=== PATIENT | male | born 1960 | race Caucasian/White ===

== ENCOUNTER 2025-05-20 05:51 | Day surgery (SDC) | payer BC, SELFPAY ==
[2025-05-20 06:07] VITALS: BMI 24.7
[2025-05-20 06:08] VITALS: BP 150/85
[2025-05-20] MEDS: TYLENOL 1000 MG PO (06:15)
[2025-05-20] MEDS: NORMOSOL-R/PLASMALYTE-A 1000 IV (06:25)
--- NOTE | 2025-05-20 06:39 | HP.FOC2 ---
Focused History & Physical
Chief Complaint
HPI:
Chief Complaint: Umbilical hernia
HPI / Indication for Planned Procedure: Patient is a 64-year-old male previously known to myself status post robotic bilateral inguinal herniorrhaphy and primary repair of an umbilical hernia in 2021. He is taking noted a visible swelling and
change in the previous appearance of his umbilicus. Physical examination confirmed the presence of a reducible recurrent umbilical hernia. He presents today for scheduled operative correction.
Relevant Past Medical History: Other (Hyperlipidemia)
Relevant Social History: Negative
Relevant Family History: Negative
Relevant Past Surgical History: Positive for (Bilateral inguinal herniorrhaphy, left ankle fracture repair, left biceps repair)
Review of Systems
Review of Pertinent Systems: All Systems Negative
Medication
See Medication form for detailed medications: Yes
Medication List (including Herbals & OTC):
No Meds [No Current Medications] 05/17/25
Medications Reviewed: Yes
Allergies and Reactions
Patient has Allergies: No
Noted Allergies and Reactions:
Allergy/AdvReac Type Severity Reaction Status Date / Time
No Known Allergies Allergy Verified 05/20/25 06:06
Pertinent Physical Exam
All Other Systems: Negative
Head/Neck: Normal
Lungs: Normal
Heart: Normal
Abdomen: Normal (Reducible umbilical hernia)
Extremities: Normal
Neurological: Normal
Diagnosis / Assessment
64-year-old male presenting for scheduled operative correction recurrent umbilical hernia
Plan / Procedure
Open repair recurrent umbilical hernia with mesh
Anesthesia/Sedation to be done by Anesthesia Provider: Yes
--- NOTE | 2025-05-20 06:42 | W.SUR.PREOP ---
Pre-Operative Surgical Note
-
I have examined this patient prior to the performance of the scheduled procedure.
The patient's condition is unchanged from the time of the current History and
Physical and the patient is able to undergo the scheduled procedure.
--- NOTE | 2025-05-20 08:03 | W.IMMPOSTOP ---
Addendum entered and electronically signed by Altaf Cloud MD 05/20/25 08:16:
#[id number]
Original Note:
Surgical Immed Post Op Note
-
Primary Surgeon: Altaf Cloud MD
Assisting Surgeon: Hailey Gallardo PA-C
Pre-op Diagnosis: Recurrent umbilical hernia
Post-op Diagnosis: Recurrent umbilical hernia; 2.5 cm
Procedure Performed: Open repair recurrent umbilical hernia with mesh; Ventralex ST 6.4 cm round
Anesthesia Type: MAC +1% lidocaine and 0.25% Marcaine with epinephrine
Specimen / Cultures: None
Estimated Blood Loss: 8 mL
Complications: None immediate
Operative Findings: Reducible, recurrent umbilical hernia. Fascial defect approximately 2.5 cm in maximal diameter. Underlay preperitoneal mesh repair; Ventralex ST 6.4 cm round secured on superior and inferior strap with transfascial 0 PDS.
Closure of fascial defect with 0 PDS.
The assistance of Hailey Gallardo PA-c was required due to the complexity of the procedure. During the procedure Hailey Gallardo PA-c assisted with retraction for exposure and closure of the incision site.
[2025-05-20 08:17] VITALS: BP 123/69
[2025-05-20 08:30] VITALS: BP 125/76
[2025-05-20 08:45] VITALS: BP 121/80
[2025-05-20 08:57] VITALS: BP 133/78
[2025-05-20 09:00] VITALS: BP 128/80
== END 2025-05-20 09:15 | disposition home or self-care (01) ==
LOC: SDS 05:51
PROVIDERS: ATTENDING PHYSICIAN Surgery
DX: K42.9 Umbilical hernia without obstruction or gangrene (principal)
CPT/HCPCS: 49613; C1781

== ENCOUNTER → 2025-07-04 11:23 | Outpatient (REF) | payer BC, SELFPAY | LOC: HWRCS 11:23 | PROVIDERS: ATTENDING PHYSICIAN Student in an Organized Health Care Education/Training Program; FAMILY PHYSICIAN Internal Medicine | DX: R00.2 Palpitations (principal) | CPT/HCPCS: 93306 ==